=== PATIENT | male | born 1945 ===

== ENCOUNTER 2020-05-16 08:50 | Outpatient (CLI) | payer MEDICARE ==
--- NOTE | 2020-05-16 10:19 | BD ---
DEXA BONE DENSITY STUDY: Date: 05/16/2020 COMPARISON: None. HISTORY: 74-year-old male with osteoporosis. FINDINGS: Lumbar Spine: BMD (g/cm2) L1 0.991 T-Score: -0.7 L2 1.041 T-Score: -0.5 L3 1.186 T-Score: 0.8 L4 1.095 T-Score: 0.0 L1-L4 1.080 T-Score: -0.1 Left Femoral Neck: 0.840 T-Score: -0.7 Total Femur: 1.158 T-Score: 0.8 IMPRESSION: Normal bone mineral density. POS: EAA
== END 2020-05-16 08:51 | disposition home or self-care (01) ==
LOC: BICMAMMO 08:50
PROVIDERS: ATTEND Family Medicine
DX: Z13.820 Encounter for screening for osteoporosis (principal)
CPT/HCPCS: 77080